=== PATIENT | male | born 1950 | race Caucasian/White ===

== ENCOUNTER → 2019-07-16 | Emergency (ER) | payer OTHER ==
[~2019-07-16] VITALS: Ht 170.2 cm; Wt 62.6 kg
[~2019-07-16] MED LIST: ASPI-231 PO; CHOL100046 PO; CLON1TAB10 PO; LEV50T PO; MET50T PO; MULTTAB OR; PANC12002 PO; SIMV10TA84 PO; VANC125PO PO
[2019-07-16 11:50] VITALS: BP 128/72
[2019-07-16 12:34] LABS: Albumin 2.1 g/dL (3.4-5.0); Calcium 7.8 mg/dL (8.5-10.1); Potassium 4.4 mmol/L (3.5-5.1)
[2019-07-16 12:40] LABS: BUN/Creatinine Ratio 11.6; Bilirubin, Total 0.7 mg/dL (0.2-1.0); Total Protein 6.5 g/dL (6.4-8.2)
[2019-07-16 12:47] LABS: Basophils # (auto) 0 uL; Eosinophils # (auto) 0 uL; Eosinophils % (auto) 0.1 % (0.0-7.0); Hemoglobin 10.5 g/dL (13.5-17.5); Lymphocytes # (auto) 1.3 uL; Monocytes # (auto) 1.6 uL; Nucleated Red Blood Cells % 0.1 %
[2019-07-16 12:49] LABS: Basophils % (auto) 0.3 % (0.0-2.0); Hematocrit 32.3 % (41.0-53.0); Mean Corpuscular Hemoglobin 33.8 pg (28.0-32.0); Mean Corpuscular Hgb Conc. 32.5 g/dL (32.0-36.0); Mean Corpuscular Volume 104.1 fL (80.0-100.0); Monocytes % (auto) 11.1 % (0.0-12.0); Neutrophils # (auto) 11.1 uL; Neutrophils % (auto) 79.5 % (37.0-80.0); Platelet Count (auto) 387 10^3/uL (140-450)
[2019-07-16 12:52] LABS: INR 1.23 (0.9-1.15); Partial Thromboplastin Time 31.3 sec (23.64-32.05)
== END | disposition left against medical advice (07) ==
LOC: ER 11:12
DX: R07.9 Chest pain, unspecified (principal); R10.9 Unspecified abdominal pain; Z53.21 Procedure and treatment not carried out due to patient leaving prior to being seen by health care provider
CPT/HCPCS: 36415; 71046; 80053; 84484; 85025; 85610; 85730; 93005

== ENCOUNTER 2020-07-07 17:46 | Inpatient (IN) | payer MEDICARE, OTHER ==
[~2020-07-07] VITALS: Ht 170.2 cm; Wt 58.6 kg
[~2020-07-07 17:46] MED LIST changes: +MULT-733 OR; -MULTTAB OR
[2020-07-07 19:43] LABS: Basophils # (auto) 0.1 10 ^3/uL (0-0.2); Basophils % (auto) 0.4 % (0.0-2.0); Eosinophils # (auto) 0 10 ^3/uL (0-0.8); Eosinophils % (auto) 0.3 % (0.0-7.0); Hematocrit 38.7 % (41.0-53.0); Hemoglobin 12.5 g/dL (13.5-17.5); Lymphocytes # (auto) 2.7 10 ^3/uL (0.4-5.4); Mean Corpuscular Hemoglobin 31.9 pg (28.0-32.0); Mean Corpuscular Hgb Conc. 32.4 g/dL (32.0-36.0); Mean Corpuscular Volume 98.4 fL (80.0-100.0); Monocytes # (auto) 1.2 10 ^3/uL (0-1.3); Monocytes % (auto) 8.9 % (0.0-12.0); Neutrophils # (auto) 9.6 10 ^3/uL (1.6-8.6); Neutrophils % (auto) 70.4 % (37.0-80.0); Nucleated Red Blood Cells % 0.4 %; Platelet Count (auto) 126 10^3/uL (140-450); Red Blood Cells 3.94 10^6/uL (4.5-5.90); White Blood Cell 13.7 10^3/uL (4.4-10.8)
[2020-07-07 20:00] LABS: INR 1.24 (0.9-1.15); Partial Thromboplastin Time 28.5 sec (23.0-31.2)
[2020-07-07 20:08] LABS: Albumin 2.8 g/dL (3.4-5.0); Amylase 39 U/L (25-115); Anion Gap 4 (5-15); Blood Urea Nitrogen 10 mg/dL (7-18); Calcium 8.2 mg/dL (8.5-10.1); Carbon Dioxide 31 mmol/L (21-32); Chloride 99 mmol/L (98-107); Glucose 118 mg/dL (74-106); Lipase < 10 U/L (73-393); Magnesium 1.6 mg/dL (1.6-2.6); Potassium 3.8 mmol/L (3.5-5.1); Sodium 134 mmol/L (136-145)
[2020-07-07 20:15] LABS: Alanine Aminotransferase 34 U/L (16-61); Alkaline Phosphatase 221 U/L (45-117); Aspartate Aminotransferase 86 U/L (15-37); BUN/Creatinine Ratio 10.8; Bilirubin, Total 1.6 mg/dL (0.2-1.0); GFR African American 104 mL/min; GFR Non-African American 86 mL/min
[2020-07-07] MEDS ORDERED: ACETAMINOPHEN 325 MG TAB PO ONE (21:15)
[2020-07-07] MEDS ORDERED: ENOXAPARIN SOD 60 MG/0.6 ML SYRINGE SC ONE (22:30)
[2020-07-07] MEDS ORDERED: ONDANSETRON HCL 4 MG/2 ML VIAL IV PRN (23:00)
[2020-07-07] MEDS ORDERED: MORPHINE SULF INJ 2 MG/ML SYRINGE 1ML IV PRN (23:00)
[2020-07-07] MEDS ORDERED: metroNIDAZOLE 500MG/100ML 100 ML IV ONE (23:00)
[2020-07-07] MEDS ORDERED: DEXTROSE (50%) 50ML SYRG IV PRN (23:00)
[2020-07-07] MEDS ORDERED: cefTRIAXone 1GM/50ML D5W 50 ML IV ONE (23:00)
[2020-07-07] MEDS ORDERED: NITROGLYCERIN 0.4 MG SL TAB SL PRN (23:00)
[2020-07-07] MEDS ORDERED: ACETAMINOPHEN 325 MG TAB PO PRN (23:00)
[2020-07-07] MEDS ORDERED: TEMAZEPAM 15 MG CAP PO PRN (23:00)
[2020-07-08] MEDS: metroNIDAZOLE 500MG/100ML 100 ML IV SCH ×3 (05:56→22:00)
[2020-07-08 07:12] LABS: Basophils # (auto) 0.1 10 ^3/uL (0-0.2); Basophils % (auto) 0.5 % (0.0-2.0); Eosinophils # (auto) 0.1 10 ^3/uL (0-0.8); Hematocrit 34.2 % (41.0-53.0); Hemoglobin 11.3 g/dL (13.5-17.5); Lymphocytes # (auto) 1.6 10 ^3/uL (0.4-5.4); Lymphocytes % (auto) 15.8 % (10.0-50.0); Mean Corpuscular Hemoglobin 32.7 pg (28.0-32.0); Mean Corpuscular Hgb Conc. 33.2 g/dL (32.0-36.0); Mean Corpuscular Volume 98.6 fL (80.0-100.0); Monocytes # (auto) 1.1 10 ^3/uL (0-1.3); Monocytes % (auto) 10.8 % (0.0-12.0); Neutrophils # (auto) 7.2 10 ^3/uL (1.6-8.6); Neutrophils % (auto) 71.9 % (37.0-80.0); Nucleated Red Blood Cells % 0.3 %; Platelet Count (auto) 118 10^3/uL (140-450); Red Blood Cells 3.46 10^6/uL (4.5-5.90); Red Cell Distribution Width 16.5 % (11.8-14.3); White Blood Cell 10.1 10^3/uL (4.4-10.8)
[2020-07-08 07:24] LABS: Albumin 2.3 g/dL (3.4-5.0); Calcium 7.6 mg/dL (8.5-10.1); Potassium 3.1 mmol/L (3.5-5.1)
[2020-07-08 07:27] LABS: BUN/Creatinine Ratio 12.6; Total Protein 6.6 g/dL (6.4-8.2)
[2020-07-08] MEDS: ACCU-CHEK COMFORT CURVE STRIP VI SCH ×4 (07:49→22:00)
[2020-07-08] MEDS: InsuLIN REG 1unit/0.01ml Soln (100units/ml) SC SCH ×4 (08:26→22:00)
[2020-07-08] MEDS: LEVOTHYROXINE SODIUM 50 MCG TAB PO SCH (08:59)
[2020-07-08] MEDS ORDERED: cefTRIAXone 1GM/50ML D5W 50 ML IV SCH (09:00)
[2020-07-08] MEDS ORDERED: MAGNESIUM SULFATE 1GM/100ML 100 ML IV ONE (09:15)
[2020-07-08] MEDS: PANCREATIC ENZYMES 4200 UNIT CAP PO SCH ×3 (09:35→19:10)
[2020-07-08] MEDS: ASPirin 81 mg TAB PO SCH ×2 (10:00→10:12)
[2020-07-08] MEDS: POTASSIUM CHL 20 Meq TABLET PO SCH (10:12)
[2020-07-08] MEDS: METOPROLOL TARTRATE 25 MG TAB PO SCH ×2 (10:13→22:00)
[2020-07-08] MEDS: ENOXAPARIN SOD 40 MG/0.4 ML SYRINGE SC SCH (10:13)
[2020-07-08] MEDS: FAMOTIDINE 20 MG TAB PO SCH ×2 (10:13→22:00)
[2020-07-08] MEDS ORDERED: IPRATROPIUM BROM 0.5 MG/2.5ML INH SOL NEB PRN (13:45)
[2020-07-08] MEDS ORDERED: ALBUTEROL SULF 2.5 MG/0.5ML(0.5%) NEB SOLN NEB PRN ×2 (13:45→14:30)
[2020-07-08 14:04] LABS: Urine Bacteria FEW /hpf (None Seen); Urine Blood Negative /uL (Negative); Urine Specific Gravity 1.016 (1.001-1.035); Urine WBC 4 /hpf (0 - 3)
[2020-07-08 14:15] LABS: Amphetamine Screen, Urine POSITIVE (NEGATIVE); Barbiturate Scree,Urine NEGATIVE (NEGATIVE); Benzodiazephine Screen, Urine NEGATIVE (NEGATIVE); Cannabinoid Screen, Urine NEGATIVE (NEGATIVE); Cocaine Screen, Urine NEGATIVE (NEGATIVE); Opiate Scree,Urine NEGATIVE (NEGATIVE); Phencyclidine Screen, Urine NEGATIVE (NEGATIVE)
[2020-07-08] MEDS ORDERED: clonazePAM 0.5 MG TAB PO PRN (14:30)
[2020-07-08] MEDS ORDERED: THIAMINE HCL 100 MG TAB PO ONE (14:45)
[2020-07-08 15:04] LABS: Hepatitis B Surface Antibody Negative
[2020-07-08 15:14] VITALS: BP 150/110
[2020-07-08 15:41] LABS: Hepatitis A Total Antibody Positive
[2020-07-08 16:06] LABS: Hepatitis B Surface Antigen Negative (Negative)
[2020-07-08 16:08] LABS: Hepatitis B Core Total AB Positive
[2020-07-08 16:09] LABS: Hepatitis C Antibody Positive (Negative)
[2020-07-08 18:10] VITALS: BP 128/88
[2020-07-08] MEDS: VANCOMYCIN HCL 125MG/5ML ORAL SOL PO SCH ×2 (19:10→23:41)
[2020-07-08 20:00] VITALS: BP 125/70
[2020-07-08 21:56] VITALS: BP 125/70
[2020-07-08] MEDS ORDERED: ATORVASTATIN 20 MG TAB PO SCH (22:00)
[2020-07-09 05:30] VITALS: BP 126/62
[2020-07-09] MEDS: VANCOMYCIN HCL 125MG/5ML ORAL SOL PO SCH ×2 (06:00→12:00)
[2020-07-09 06:18] LABS: Basophils # (auto) 0.1 10 ^3/uL (0-0.2); Basophils % (auto) 0.6 % (0.0-2.0); Eosinophils # (auto) 0.2 10 ^3/uL (0-0.8); Hematocrit 31.3 % (41.0-53.0); Hemoglobin 10.5 g/dL (13.5-17.5); Lymphocytes # (auto) 1.7 10 ^3/uL (0.4-5.4); Lymphocytes % (auto) 20.1 % (10.0-50.0); Mean Corpuscular Hemoglobin 33.4 pg (28.0-32.0); Mean Corpuscular Hgb Conc. 33.5 g/dL (32.0-36.0); Mean Corpuscular Volume 99.7 fL (80.0-100.0); Monocytes # (auto) 1.2 10 ^3/uL (0-1.3); Monocytes % (auto) 14.1 % (0.0-12.0); Neutrophils # (auto) 5.4 10 ^3/uL (1.6-8.6); Neutrophils % (auto) 63.2 % (37.0-80.0); Nucleated Red Blood Cells % 0.2 %; Platelet Count (auto) 117 10^3/uL (140-450); Red Blood Cells 3.14 10^6/uL (4.5-5.90); Red Cell Distribution Width 16.5 % (11.8-14.3); White Blood Cell 8.5 10^3/uL (4.4-10.8)
[2020-07-09] MEDS: metroNIDAZOLE 500MG/100ML 100 ML IV SCH ×2 (06:22→15:29)
[2020-07-09 06:23] LABS: INR 1.21 (0.9-1.15)
[2020-07-09] MEDS: ACCU-CHEK COMFORT CURVE STRIP VI SCH ×3 (06:23→17:48)
[2020-07-09] MEDS: InsuLIN REG 1unit/0.01ml Soln (100units/ml) SC SCH ×3 (06:23→17:00)
[2020-07-09] MEDS: LEVOTHYROXINE SODIUM 50 MCG TAB PO SCH (06:25)
[2020-07-09 06:38] LABS: Potassium 3.4 mmol/L (3.5-5.1)
[2020-07-09 06:46] LABS: Magnesium 1.7 mg/dL (1.6-2.6)
[2020-07-09] MEDS: PANCREATIC ENZYMES 4200 UNIT CAP PO SCH ×3 (08:44→18:08)
[2020-07-09 09:00] VITALS: BP 130/58
[2020-07-09] MEDS ORDERED: THIAMINE HCL 100 MG TAB PO SCH (10:00)
[2020-07-09] MEDS ORDERED: MAGNESIUM SULFATE 1GM/100ML 100 ML IV ONE ×2 (10:00→10:30)
[2020-07-09] MEDS ORDERED: ASPirin 81 mg TAB PO SCH (10:00)
[2020-07-09] MEDS ORDERED: MULTIPLE VITAMINS W/ MINERALS TAB PO SCH (10:00)
[2020-07-09] MEDS ORDERED: POTASSIUM CHL 20 Meq TABLET PO ONE ×2 (10:00→10:30)
[2020-07-09] MEDS: POTASSIUM CHL 20 Meq TABLET PO SCH (10:13)
[2020-07-09] MEDS: ENOXAPARIN SOD 40 MG/0.4 ML SYRINGE SC SCH (10:15)
[2020-07-09] MEDS: FAMOTIDINE 20 MG TAB PO SCH (10:15)
[2020-07-09] MEDS: METOPROLOL TARTRATE 25 MG TAB PO SCH (10:15)
[2020-07-09 12:54] VITALS: BP 119/79
[2020-07-09] MEDS ORDERED: METR500T PO (15:32)
[2020-07-09 16:23] VITALS: BP 143/75
[2020-07-09 16:42] VITALS: BP 143/75
== END 2020-07-09 18:55 | disposition home or self-care (01) | DRG 640 ==
LOC: ER 17:48 → TELE 17:49 → TELE-CENTR 07-08 17:51
PROVIDERS: ADMIT Nurse Practitioner; ATTEND Internal Medicine
DX: E87.6 Hypokalemia (principal); I21.A1 Myocardial infarction type 2; K86.1 Other chronic pancreatitis; E44.0 Moderate protein-calorie malnutrition; J44.1 Chronic obstructive pulmonary disease with (acute) exacerbation; R65.10 Systemic inflammatory response syndrome (SIRS) of non-infectious origin without acute organ dysfunction; D68.4 Acquired coagulation factor deficiency; E83.42 Hypomagnesemia; E11.9 Type 2 diabetes mellitus without complications; Z91.14 Patient's other noncompliance with medication regimen; E78.5 Hyperlipidemia, unspecified; E03.9 Hypothyroidism, unspecified; I10 Essential (primary) hypertension; K70.31 Alcoholic cirrhosis of liver with ascites; Z20.822 Contact with and (suspected) exposure to COVID-19; D63.8 Anemia in other chronic diseases classified elsewhere; D69.6 Thrombocytopenia, unspecified; F10.20 Alcohol dependence, uncomplicated; F12.90 Cannabis use, unspecified, uncomplicated; F15.90 Other stimulant use, unspecified, uncomplicated; F17.210 Nicotine dependence, cigarettes, uncomplicated; I25.10 Atherosclerotic heart disease of native coronary artery without angina pectoris; M06.9 Rheumatoid arthritis, unspecified; K80.20 Calculus of gallbladder without cholecystitis without obstruction; M41.9 Scoliosis, unspecified; Z59.0 Homelessness; Z80.1 Family history of malignant neoplasm of trachea, bronchus and lung; Z82.49 Family history of ischemic heart disease and other diseases of the circulatory system; Z86.19 Personal history of other infectious and parasitic diseases; Z90.81 Acquired absence of spleen; Z95.1 Presence of aortocoronary bypass graft; Z95.5 Presence of coronary angioplasty implant and graft; Z68.20 Body mass index [BMI] 20.0-20.9, adult
CPT/HCPCS: 36415; 71045; 74176; 80053; 80061; 80307; 81001; 82010; 82150; 82306; 82962; 83605; 83690; 83735; 83880; 84132; 84443; 84484; 85025; 85048; 85610; 85730; 86704; 86706; 86708; 86803; 87340; 87426; 93005; 93306; 93970; 96365; 96366; 96368; 96372; 97163; G0378; J0696; J1815; J3490

== ENCOUNTER 2020-08-02 03:33 | Emergency (ER) | payer MEDICARE, OTHER ==
[~2020-08-02] VITALS: Ht 167.6 cm; Wt 61.2 kg
[~2020-08-02 03:33] MED LIST changes: +METR500T PO
[2020-08-02 07:02] LABS: Basophils # (auto) 0.1 10 ^3/uL (0-0.2); Basophils % (auto) 1.3 % (0.0-2.0); Eosinophils # (auto) 0.1 10 ^3/uL (0-0.8); Eosinophils % (auto) 1.1 % (0.0-7.0); Hemoglobin 11.9 g/dL (13.5-17.5); Lymphocytes # (auto) 1.6 10 ^3/uL (0.4-5.4); Lymphocytes % (auto) 22.6 % (10.0-50.0); Mean Corpuscular Hemoglobin 33.1 pg (28.0-32.0); Mean Corpuscular Hgb Conc. 33.8 g/dL (32.0-36.0); Mean Corpuscular Volume 97.8 fL (80.0-100.0); Monocytes # (auto) 0.6 10 ^3/uL (0-1.3); Monocytes % (auto) 8.9 % (0.0-12.0); Neutrophils # (auto) 4.8 10 ^3/uL (1.6-8.6); Neutrophils % (auto) 66.1 % (37.0-80.0); Nucleated Red Blood Cells % 0.2 %; Platelet Count (auto) 184 10^3/uL (140-450); Red Blood Cells 3.58 10^6/uL (4.5-5.90); Red Cell Distribution Width 16.5 % (11.8-14.3); White Blood Cell 7.2 10^3/uL (4.4-10.8)
[2020-08-02 07:18] LABS: INR 1.1 (0.9-1.15); Partial Thromboplastin Time 29.6 sec (23.0-31.2)
[2020-08-02 07:30] LABS: Albumin 2.5 g/dL (3.4-5.0); BUN/Creatinine Ratio 15.1; Calcium 7.6 mg/dL (8.5-10.1); Potassium 4.1 mmol/L (3.5-5.1)
[2020-08-02 07:33] LABS: Bilirubin, Total 0.3 mg/dL (0.2-1.0); Total Protein 7.5 g/dL (6.4-8.2)
[2020-08-02] MEDS ORDERED: IOPAMIDOL 76 % (ISOVUE-370) 100ML BTL IV ONE (10:45)
[2020-08-02 14:23] VITALS: BP 162/75
[2020-08-02] MEDS ORDERED: ACETAMINOPHEN 500 MG TAB PO ONE (15:15)
== END 2020-08-02 15:50 | disposition home or self-care (01) ==
LOC: EDBD 03:33 → ER 03:33
DX: R06.00 Dyspnea, unspecified (principal); F17.210 Nicotine dependence, cigarettes, uncomplicated; F12.10 Cannabis abuse, uncomplicated; J44.9 Chronic obstructive pulmonary disease, unspecified; E11.9 Type 2 diabetes mellitus without complications; E78.5 Hyperlipidemia, unspecified; I10 Essential (primary) hypertension; Z59.0 Homelessness; Z20.822 Contact with and (suspected) exposure to COVID-19
CPT/HCPCS: 36415; 71045; 71275; 80053; 83880; 85025; 85379; 85610; 85730; 87426; 99285; C9803; Q9967; U0003